=== PATIENT | male | born 1985 | race Caucasian/White ===

== ENCOUNTER 2018-10-16 01:26 | Observation (INO) | payer OTHER ==
[~2018-10-16] VITALS: Ht 182.9 cm; Wt 108.9 kg
[2018-10-16 01:30] VITALS: BP 156/96
--- NOTE | 2018-10-16 05:03 | NUR ---
PT AMBULATED TO ER BED 02
--- NOTE | 2018-10-16 05:10 | NUR ---
33/M PRESENTS TO ED, C/O 2 EPISODES OF NEAR-SYNCOPE, SOB, CHEST PAIN; STARTED SINCE 2229 WHILE WATCHING TV AND WHILE DRIVING. PT REPORTS THAT SYMPTOMS RESOLVED. REPORTS L LOWER RIBS/LLQ REGION PAIN, DENIES TRAUMA/INJURY, NO ABNORMALITY/BRUISING, TENDER TO TOUCH. DENIES FEVER, COUGH, N/V/D, CONSTIPATION. PT AWAKE AND ALERT, SKIN NORMAL WARM AND DRY, SPO2 98% ON RA, RR 12 EVEN AND UNLABORED. BP 134/90, HR 62 EVEN AND REGULAR, NSR ON MONITOR. LUNG SOUNDS CLEAR BL. BS ACTIVE X4, ABD SOFT ROUND TENDER TO LLQ. DENIES MED/PSYCH HX, RX. OTC WEIGHT-LOSS PILL FOR 1 WEEK. DENIES CAFFEINE/ALCOHOL/SUBSTANCE ABUSE; REPORTS MARIJUANA USE
[2018-10-16] MEDS ORDERED: AZITHROMYCIN 250 MG TAB PO ONE (06:15)
[2018-10-16] MEDS ORDERED: cefTRIAXone 1,000 MG in LIDOCAINE MPF 1% - 5 mL VIAL 2.1 ML IM ONE (06:15)
--- NOTE | 2018-10-16 06:36 | NUR ---
PT LAYING IN BED, RR EVEN AND UNLABORED. REPORTS IMPROVEMENT IN PAIN RELIEF. DENIES CP, SOB, DIZZINESS AT THIS TIME. ALL NEEDS MET.
--- NOTE | 2018-10-16 07:05 | NUR ---
Pt report given to FER VELIZ. Transfer of care at this time.
--- NOTE | 2018-10-16 07:45 | NUR ---
VSS AT THIS TIME. AA0X4
[2018-10-16 08:07] LABS: BASOPHILS % (AUTO) 0.5 % (0.0-2.0); EOSINOPHILS # (AUTO) 0.1 K/uL (0-0.4); EOSINOPHILS % (AUTO) 1.4 % (0.0-4.0); HEMOGLOBIN 15.3 g/dL (12.0-18.0); LYMPHOCYTES # (AUTO) 1.7 K/uL (2.0-11.5); MEAN CORPUSCULAR HEMOGLOBIN 32 pg (27-31); MEAN CORPUSCULAR HGB CONC 35 g/dL (33-37); MEAN CORPUSCULAR VOLUME 91.6 fL (80-94); MONOCYTES # (AUTO) 0.6 K/uL (0.8-1.0); MONOCYTES % (AUTO) 9.7 % (1.7-9.3); NEUTROPHILS # (AUTO) 3.7 K/uL (1.8-7.7); NEUTROPHILS % (AUTO) 60.4 % (42.2-75.2); PLATELET COUNT (AUTO) 215 K/uL (140-450); RED CELL DISTRIBUTION WIDTH 13.5 % (11.6-13.7); WHITE BLOOD COUNT (AUTO) 6.1 K/uL (4.8-10.8)
[2018-10-16 08:18] LABS: ANION GAP 14.5 (8-16); CARBON DIOXIDE 28.5 mmol/L (21-32)
[2018-10-16 08:24] LABS: ALBUMIN 3.6 g/dL (3.4-5.0); TOTAL BILIRUBIN 0.6 mg/dL (0.0-1.0)
--- NOTE | 2018-10-16 08:27 | NUR ---
PT AA0X4. RR EVEN AND UNLABORED. NO SIGNS OF DISTRESS AT THIS TIME.
--- NOTE | 2018-10-16 08:41 | NUR ---
TROPONIN 0.333, REPORTED TO DR STALLINGS
[2018-10-16] MEDS ORDERED: ASPIRIN 325 MG TAB PO ONE (08:50)
--- NOTE | 2018-10-16 09:03 | NUR ---
DR STALLINGS SPEAKING WITH PATIENT. PATIENT WISHES TO LEAVE AMA. PATIENT REUESTING TO SIGN AMA FORM.
--- NOTE | 2018-10-16 09:15 | NUR ---
PER PATIENT, NO MEDICAL INFORMATION IS TO BE RELEASED TO PTS GIRLFRIEND. GIRLFRIEND IS SITTING BEDSIDE AT THIS TIME.
[2018-10-16] MEDS ORDERED: ALBUTEROL 0.083% 2.5 MG/3 ML NEBU INH PRN (09:40)
[2018-10-16] MEDS ORDERED: MORPHINE SULFATE 2 MG/ML SYR IVP PRN (09:40)
[2018-10-16] MEDS ORDERED: LORazepam 2 MG/ML VIAL IVP PRN (09:40)
[2018-10-16] MEDS ORDERED: MORPHINE SULFATE 4 MG/ML SYR IVP PRN (09:40)
[2018-10-16] MEDS ORDERED: ONDANSETRON 4 MG/2 ML VIAL IVP PRN (09:40)
--- NOTE | 2018-10-16 10:15 | NUR ---
PATIENT ARRIVED VIA GURNEY, PATIENT AMBULATED TO BED VIA STEADY GAIT. GIRLFRIEND AT BEDSIDE. RECEIVED REPORT FROM MIDDLEWARE SYSTEMS ARCHITECT KEREN. PATIENT REQUEST THAT GIRLFRIEND NOT BE PROVIDED WITH MEDICAL INFORMATION. AOX4, CAN VERBALIZE NEEDS. NO S/S OF DISTRESS OR SOB NOTED ON ROOM AIR. IV TO LAC #20 G, SALINE LOCKED, INTACT, PATENT, AND ASYMPTOMATIC. UPDATED BOARD. ORIENTED PATIENT TO ROOM, CALL LIGHT, TV, AND BATHROOM. VS WNL. SAFETY PRECAUTIONS IN PLACE, CALL LIGHT WITHIN REACH, WILL CONTINUE TO MONITOR PATIENT.
--- NOTE | 2018-10-16 10:18 | NUR ---
Patient will be admitted to care of [facility]. Admited to TELE OBSERVATION. Will go to room 106A. Belongings list completed. Report to FLASH RN. FLASH INSTRUCTED THAT PATIENT DOES NOT WISH MEDICAL INFORMATION BE SHARED WITH HIS GIRLFRIEND.
[2018-10-16 10:20] VITALS: BP 138/82
--- NOTE | 2018-10-16 10:36 | NUR ---
DR WHALEN IN TO SEE THE PATIENT. WILL WAIT FOR NEW ORDERS.
[2018-10-16] MEDS ORDERED: NITROGLYCERIN 0.4 MG TAB SL PRN (10:40)
[2018-10-16 12:00] VITALS: BP 129/59
--- NOTE | 2018-10-16 12:05 | NUR ---
PATIENT RESTING IN BED, GIRLFRIEND AT BEDSIDE, NO COMPLAINTS AT THIS TIME. WILL CONTINUE TO MONITOR PATIENT.
--- NOTE | 2018-10-16 14:11 | NUR ---
PATIENT ASLEEP IN BED, GIRLFRIEND AT BEDSIDE, NO COMPLAINTS AT THIS TIME. WILL CONTINUE TO MONITOR PATIENT.
[2018-10-16 16:00] VITALS: BP 126/67
--- NOTE | 2018-10-16 16:10 | NUR ---
PATIENT RESTING IN BED, VS WNL. NO COMPLAINTS AT THIS TIME. UPDATED WITH TRANSFER NEWS. THEY VERBALIZED UNDERSTANDING. NO COMPLAINTS AT THIS TIME. PATIENT NOT COMPLAINING OF PAIN AT THE MOMENT. WILL CONTINUE TO MONITOR PATIENT.
--- NOTE | 2018-10-16 17:00 | NUR ---
CALLED [facility] AND SPOKE TO KIT FOR AUTHORIZATION INPATIENT AT [facility] #[id number] AND AUTH FOR TRANSPORT IS [id number]. WAITING FOR [facility] TO CALL FOR BED.
--- NOTE | 2018-10-16 18:18 | NUR ---
PATIENT SITTING UP IN BED EATING DINNER. GIRLFRIEND AT BEDSIDE. UPDATED THEM WITH TRANSFER NEWS. THEY VERBALIZED UNDERSTANDING. WILL CONTINUE TO MONITOR PATIENT AND ENDORSE TO CHRONOMETER ASSEMBLER NURSE.
--- NOTE | 2018-10-16 19:17 | NUR ---
REPORT GIVEN TO METAL FABRICATION SUPERVISOR RN PRICILA AT BEDSIDE FOR CONTINUITY OF CARE. PATIENT IN STABLE CONDITION, GIRLFRIEND AT BEDSIDE.
[2018-10-16 20:00] VITALS: BP 131/74
--- NOTE | 2018-10-16 21:00 | NUR ---
PT SLEEPING, EASILY ARUSABLE, 2/10 PAIN LEVEL AT THIS TIME, VITAL SIGNS TAKEN:BP-135/82, HR-64, RR-16, SAT-96%, TEMP-97.7, MONITORED CLOSELY.
--- NOTE | 2018-10-16 21:19 | NUR ---
RECEIVED CALL FROM DEANA PERL SOFTWARE ENGINEER DONNELL, PT GOING TO ROOM 268A AND TO CALL REPORT AT [phone], REPORT GIVEN TO FER KELLER.
--- NOTE | 2018-10-16 21:33 | NUR ---
RECEIVING FER KELLER MADE AWARE THAT ETA FOR [facility] TRANSPORT WILL BE 2 HOURS DUE TO HEAVY VOLUME OF 911 CALLS.
--- NOTE | 2018-10-16 22:50 | NUR ---
HR OF 49 BPM ON TELE, SEEN PT SLEEPING, HR WENT UP IN THE 60'S WHEN AWAKENED, NO DISTRESS NOTED, MONITORED CLOSELY.
[2018-10-16 23:30] VITALS: BP 108/50
--- NOTE | 2018-10-16 23:55 | NUR ---
FOLLOW UP CALL TO [facility] AND SPOKE TO KENJI SWANSON ANOTHER 60 MINUTES DUE TO HIGH LEVEL OF 911 CALLS, PT MADE AWARE, VITAL SIGNS STABLE, SB ON TELE WITH 50'S BPM, TOLERABLE PAIN 3/10 AT THIS TIME, NO SOB NOTED, MONITORED CLOSELY, GIRLFRIEND AT BEDSIDE.
--- NOTE | 2018-10-17 00:08 | NUR ---
CALLED [facility] AND SPOKE TO NEW RECEIVING FER ANGEL, MADE AWARE OF NEW ETA FOR TRANSPORT, PER RN PT IS NOW GOING TO ROOM 259B.
--- NOTE | 2018-10-17 02:20 | NUR ---
FOLLOW UP CALL TO [facility] AND SPOKE TO SHERIDAN, THEY ARE STILL ON FULL CAPACITY AND ETA FOR ANOTHER 90 MINUTES, CHARGE NURSE ONEIL MADE AWARE, PT SLEEPING, NO SIGNS OF DISTRESS, MONITORED CLOSELY.
[2018-10-17 03:30] VITALS: BP 102/51
--- NOTE | 2018-10-17 03:30 | NUR ---
PT SLEEPING, VITAL SIGNS TAKEN, SB WITH HR IN THE 50'S WHEN SLEEPING, HR GOES UP TO 60'S WHEN AWAKE, TOLERABLE PAIN 3/10 AT THIS TIME, NO SOB NOTED, AWAITING [facility] TRANSPORT.
--- NOTE | 2018-10-17 03:45 | NUR ---
[facility] TRANSPORT HERE, PT TRANSFERRED TO [facility] ROOM 259B FOR CARDIAC CATH EVAL IN STABLE CONDITION, GIRLFRIEND GEORGES IS AWARE.
[2018-10-17] MEDS ORDERED: ASPIRIN 81 MG TAB.CHEW PO SCH (09:00)
== END 2018-10-17 03:45 | disposition short-term general hospital (02) ==
LOC: MED 01:26 → MTU 10:04
PROVIDERS: ADMIT Internal Medicine Pulmonary Disease; ATTEND Internal Medicine Pulmonary Disease
DX: R07.89 Other chest pain (principal); F15.10 Other stimulant abuse, uncomplicated; E66.9 Obesity, unspecified; R79.89 Other specified abnormal findings of blood chemistry; R42 Dizziness and giddiness; Z72.89 Other problems related to lifestyle
CPT/HCPCS: 36415; 71045; 80053; 83690; 84484; 85025; 86703; 87081; 96372; 96374; 99285; G0378; J0696; J2001; J2270; Q0092